=== PATIENT | female | born 1950 | race Caucasian/White ===

== ENCOUNTER 2023-03-10 17:09 | Inpatient (IN) | payer OTHER ==
[~2023-03-10] VITALS: Ht 152.4 cm; Wt 48.0 kg
[~2023-03-10 17:09] MED LIST: ASPIRIN 81M81 MG/TA2 PO; COENZYME Q-10200 M1 PO; EFFIENT5 MG PO; IBU400 MG PO; MELATONIN1 MG PO; MICARDIS HCT 121 TA1 PO; MULTI VITAMINS1 TAB PO; NITROSTAT0.4 MG/TAB SL; NORVASC 10MG10 MG PO; OMEGA MINT FISH1 SGL PO; TOPROL XL 25MG25 MG PO; VITAMIN D32000 I1 PO; ZADITOR 5 ML5 ML; ZETIA 10MG TAB10 MG PO; ZYRTEC 10MG10 MG PO
[2023-03-10 18:30] VITALS: BP 165/96; PULSE 82; TEMP 98.1
--- NOTE | 2023-03-10 18:39 | NUR ---
admitted via stretcher from [facility], assisted off cart and into bed at approx 1825, alert and oriented but asks and says things that aren't relevant, into bathroom and voided qs, then out to room and into gown, heart rate strong and regular, lungs are CTA, abdomen soft and slightly distended, bowel sounds present in 4 quads, skin warm and dry and color normal, INT to right antecubital, she denies needs, at bedside
--- NOTE | 2023-03-10 19:00 | NUR ---
bedside shift report given to KI Carrera
[2023-03-10 19:13] VITALS: BP 149/61; PULSE 82; TEMP 97.6
--- NOTE | 2023-03-10 20:00 | NUR ---
PATIENT RECENTLY ARRIVED TO UNIT BEFORE SHIFT CHANGE, ADMISSION COMPLETED. PATIENT IS A&O. VSS ON TELE. DENIES C/O N/V AT THIS TIME, ONLY C/O ABD PAIN WITH CERTAIN MOVEMENTS OR WHEN HER ABD IS PUSHED/PALPATED. ABD IS DISTENDED, SOFT AND WITH POSITIVE BOWL SOUNDS. PATIENT REPORTS SMALL HARD, PEBBLE LIKE STOOL YESTERDAY. REPORTS SHE IS NOT PASSING FLATUS. CURRENTLY ON BOWL REST, NPO. GAVE PRN IV ZOFRAN BEFORE SCHEDULED PO MEDS GIVEN WITH SIPS PER HOSPITALIST, SEE MAR. IV FLUIDS INFUSING VIA PUMP INTO RIGHT AC IV. HEAD TO TOE ASSESSMENT COMPLETE. AT BEDSIDE. ORIENTED TO ROOM. CALL LIGHT IN REACH. HOSPITALIST LEGAL PARAPROFESSIONAL AT BEDSIDE, SEE ORDERS.
[2023-03-10 23:27] VITALS: BP 151/82; PULSE 87; TEMP 98.4
[2023-03-11] VITALS (10 sets, daily range): BP systolic 121–159; BP diastolic 69–96; PULSE 77–104; TEMP 97.5–98.8
[2023-03-11] MEDS ORDERED: PROAIR HFA0.09 MG/AC IH (03:30)
[2023-03-11] MEDS ORDERED: ADVIL200 MG PO (03:32)
[2023-03-11] MEDS ORDERED: EPA FISH OIL1 SGL PO (03:37)
[2023-03-11] MEDS ORDERED: ATROVENT I0.2 MG/1 M IH (03:38)
[2023-03-11] MEDS ORDERED: BYSTOLIC2.5 MG PO (03:41)
[2023-03-11 05:32] LABS: BASO # 0.1 K/mm3 (0.0-0.2); BASO % 0.8 % (0.0-2.0); EOS # 0.2 K/mm3 (0.0-0.7); EOS % 2.3 % (0.0-4.0); GRAN # 5.5 K/mm3 (1.4-6.5); GRAN % 73.9 % (42.2-75.2); HEMOGLOBIN 11.8 g/dl (12.5-16.0); LYMPH # 1.2 K/mm3 (1.2-3.4); LYMPH % 16.2 % (20.0-51.0); MEAN CELL VOLUME 87 fl (80.0-100.0); MEAN CORPUSCULAR HEMOGLOBIN 30 pg (27-31); MEAN CORPUSCULAR HGB CONC 34 g/dl (33.0-37.0); MEAN PLATELET VOLUME 9.5 fl (7.4-10.4); MONO # 0.5 K/mm3 (0.1-0.6); MONO % 6.5 % (1.7-9.3); PLATELET COUNT 266 K/mm3 (130-400); RED BLOOD COUNT 3.96 M/mm3 (4.10-5.30); REDCELL DISTRIBUTION WIDTH-CV 12.8 % (11.5-14.5)
[2023-03-11 05:36] LABS: HEMATOCRIT 34.4 % (37.0-47.0)
[2023-03-11 06:01] LABS: CALCIUM 8.9 mg/dL (8.4-10.2); CREATININE, serum 0.94 mg/dL (0.57-1.11); POTASSIUM 3.7 mmol/L (3.5-4.5)
--- NOTE | 2023-03-11 12:07 | NUR ---
Air Purifier Servicer met with patient to discuss discharge planning. Patient lives in [place] with her , Adam (ph#[phone]). Patient goes to [facility] for primary care and medications. Patient does not use any DME and is independent with [facility]. Patient was not sure if she had DPOA-HC or not. Patient stated she has two sons: one in [place] and one in [place]. Patient also has a daughter that lives in [place]. Patient plans to return to home at time of discharge. Discharge Plan: Home
--- NOTE | 2023-03-11 14:13 | NUR ---
Initial visit: Geodetic Engineer stopped by room on rounds. Pt was resting and content. Pt has no needs right now. Geodetic Engineer will follow up as needed.
[2023-03-11] MEDS ORDERED: NIGHT TIME COL355 M1 PO (14:46)
--- NOTE | 2023-03-11 16:31 | NUR ---
Reviewed student nurses assessment of the patient. Patient A&Ox4. VSS. IV CDI, fluids infusing. Reports pain in abdomen, patient NPO. Waiting to talk with the doctor. No further needs expressed. Call light within reach
--- NOTE | 2023-03-11 20:35 | NUR ---
Initial shift assessment done- states and abd pain 12/09-did inform pt she can have some Morphine IV for pain but she prefers to have the Tylenol suppositiory for pain,, Taking just few sips of clear liquids, Tele on- NSR, Iv fluids of NS at 75cc/hr-Up to bathroom with assist,voiding clear yellow urine- states abd feels heavy but denies nausea.
[2023-03-12] VITALS (11 sets, daily range): BP systolic 129–157; BP diastolic 74–87; PULSE 81–89; TEMP 97.9–98.7
[2023-03-12 05:10] LABS: BASO # 0.1 K/mm3 (0.0-0.2); BASO % 1.2 % (0.0-2.0); EOS # 0.2 K/mm3 (0.0-0.7); EOS % 4.6 % (0.0-4.0); GRAN # 3.2 K/mm3 (1.4-6.5); GRAN % 63.4 % (42.2-75.2); HEMOGLOBIN 11.2 g/dl (12.5-16.0); LYMPH # 1.2 K/mm3 (1.2-3.4); MEAN CELL VOLUME 89 fl (80.0-100.0); MEAN CORPUSCULAR HEMOGLOBIN 30 pg (27-31); MEAN CORPUSCULAR HGB CONC 33 g/dl (33.0-37.0); MEAN PLATELET VOLUME 9.5 fl (7.4-10.4); MONO # 0.3 K/mm3 (0.1-0.6); MONO % 6.6 % (1.7-9.3); PLATELET COUNT 273 K/mm3 (130-400); RED BLOOD COUNT 3.75 M/mm3 (4.10-5.30); REDCELL DISTRIBUTION WIDTH-CV 12.7 % (11.5-14.5)
[2023-03-12 05:21] LABS: HEMATOCRIT 33.5 % (37.0-47.0)
--- NOTE | 2023-03-12 05:57 | NUR ---
VSS, was given Tylenol suppositiory x2 tonight for abd pain- no nausea/vomiting, states is passing small amount of gas- no BM, abd rounded, soft w/active bowel sounds.
[2023-03-12 06:15] LABS: CALCIUM 8.2 mg/dL (8.4-10.2); CREATININE, serum 0.78 mg/dL (0.57-1.11); POTASSIUM 3.1 mmol/L (3.5-4.5)
--- NOTE | 2023-03-12 20:00 | NUR ---
Initial shift assessment done- States has a headache and abd pain 11/09,,offered morphine IV but pt prefers just the Tylenol Suppository at this time, SCD,s placed on pt at this time, IV fluids remain at 75cc/hr, Abd rounded , soft, distant bowel sounds, is passing some gas - Tele on SR,, VSS, has a congested sounding cough. Did get a CXR earlier today--Did talk with the PA on [facility] [employer] to look at results-- will order an I.S, no fever, or increased white count no o2 needed,so will just watch tonzackary
[2023-03-13] VITALS (11 sets, daily range): BP systolic 133–168; BP diastolic 71–93; PULSE 81–94; TEMP 97.5–98.6
--- NOTE | 2023-03-13 05:38 | NUR ---
Quiet night , has been resting well, did request cough medicine during the night and did get order but pt has been sleeping so not given yet, only received the Tylenol at start of shift- not getting any other meds for pain/nausea. Only taking a few sips/not wanting to try food {pudding etc"
[2023-03-13 05:53] LABS: BASO # 0.1 K/mm3 (0.0-0.2); BASO % 0.9 % (0.0-2.0); EOS # 0.3 K/mm3 (0.0-0.7); EOS % 5.4 % (0.0-4.0); GRAN # 3.3 K/mm3 (1.4-6.5); HEMOGLOBIN 11.8 g/dl (12.5-16.0); LYMPH # 1.3 K/mm3 (1.2-3.4); LYMPH % 24.3 % (20.0-51.0); MEAN CELL VOLUME 87 fl (80.0-100.0); MEAN CORPUSCULAR HEMOGLOBIN 30 pg (27-31); MEAN CORPUSCULAR HGB CONC 34 g/dl (33.0-37.0); MEAN PLATELET VOLUME 9.6 fl (7.4-10.4); MONO # 0.4 K/mm3 (0.1-0.6); MONO % 8.2 % (1.7-9.3); PLATELET COUNT 312 K/mm3 (130-400); RED BLOOD COUNT 3.95 M/mm3 (4.10-5.30); REDCELL DISTRIBUTION WIDTH-CV 12.2 % (11.5-14.5)
[2023-03-13 05:54] LABS: CALCIUM 8.5 mg/dL (8.4-10.2); CREATININE, serum 0.71 mg/dL (0.57-1.11); HEMATOCRIT 34.4 % (37.0-47.0); POTASSIUM 3.2 mmol/L (3.5-4.5)
--- NOTE | 2023-03-13 08:45 | NUR ---
SHIFT ASSESSMENT COMPLETED. PATIENT WAS HAVING PAIN THIS MORNING. GIVEN TYLENOL SUPPOSITORY PER EMAR. PATIENT REPORTS CHEST PAIN AND ABDOMIANL PAIN. SHE REPORTS NOT BEING HUNGRY AND NOT FEELING LIKE EATING HER MEALS. PATIENT REPORTS HAVING NO BOWEL MOVEMENTS ONLY A PEBBLE OF POOP PER HER WORDS. CALL LIGHT WITHIN REACH.
--- NOTE | 2023-03-13 18:39 | NUR ---
PATIENT HAS BEEN HAVING POOR APPETITE THROUHOUT THE DAY. PATIENT JUST HAD A VOMITING EPISODE. SHE REPORTED DID NOT FEEL GOOD AND THEN SHE VOMITTED. VOMIT WAS GREEN/YELLOW AND RUNNY. PATIENT HELPED GET CLEANED UP AND NEW GOWN WAS PROVIDED. CALL LIGHT WITHIN REACH. ALARM ON BED.
--- NOTE | 2023-03-13 19:00 | NUR ---
RECEIVED CHANGE OF SHIFT REPORT FROM DAY SHIFT RN.
--- NOTE | 2023-03-13 20:30 | NUR ---
PATIENT STILL COMPLAINS OF NAUSEA AFTER ZOFRAN GIVEN, INFORMED ONCALL HOSP PROVIDER OF C/O, PROVIDER TO ENTER ORDER ACCORDINGLY.
--- NOTE | 2023-03-13 21:16 | NUR ---
PATIENT REPORTED HAD EMESIS AND THAT HER STOMACH "STILL FEELS FUNNY", OBSERVED EMESIS BROWNISH IN COLOR.
[2023-03-14] VITALS (10 sets, daily range): BP systolic 142–160; BP diastolic 75–92; PULSE 77–96; TEMP 97.9–99
[2023-03-14 05:19] LABS: BASO % 0.6 % (0.0-2.0); EOS # 0.1 K/mm3 (0.0-0.7); EOS % 2.2 % (0.0-4.0); GRAN # 4.3 K/mm3 (1.4-6.5); GRAN % 68.1 % (42.2-75.2); HEMOGLOBIN 11.2 g/dl (12.5-16.0); LYMPH # 1.4 K/mm3 (1.2-3.4); MEAN CELL VOLUME 88 fl (80.0-100.0); MEAN CORPUSCULAR HEMOGLOBIN 29 pg (27-31); MEAN CORPUSCULAR HGB CONC 33 g/dl (33.0-37.0); MEAN PLATELET VOLUME 9.8 fl (7.4-10.4); MONO # 0.4 K/mm3 (0.1-0.6); MONO % 6.9 % (1.7-9.3); PLATELET COUNT 308 K/mm3 (130-400); RED BLOOD COUNT 3.85 M/mm3 (4.10-5.30); REDCELL DISTRIBUTION WIDTH-CV 12.4 % (11.5-14.5)
[2023-03-14 05:22] LABS: HEMATOCRIT 33.8 % (37.0-47.0)
[2023-03-14 05:39] LABS: CALCIUM 8.4 mg/dL (8.4-10.2); CREATININE, serum 0.79 mg/dL (0.57-1.11); POTASSIUM 3.8 mmol/L (3.5-4.5)
--- NOTE | 2023-03-14 07:27 | NUR ---
CHANGE OF SHIFT REPORT GIVEN TO DAY SHIFT RNRODRÍGUEZ.
--- NOTE | 2023-03-14 10:33 | NUR ---
GIVEN PATIENTS ANASTASIA VELEZ PHONE NUMBER TO CALL FOR UPDATE. PATIENT GAVE VERBAL CONSENT
--- NOTE | 2023-03-14 11:37 | NUR ---
ECHO IN ROOM.PATIENT WITH COPMLAINTS OF ABD PAIN 12/09.. PAIN MEDICATION ADMINISTERED.
--- NOTE | 2023-03-14 15:45 | NUR ---
DR REYES SPENT EXTENSIVE TIME WITH PATIENT INFORMING HER OF POSSIBLE SURGERY FOR TOMORROW. RN SAW PATIENT SHORTLY AFTER, TO SIGN CONSENT, PATIENT DOES NOT WANT TO SIGN CONSENT AT THIS TIME. PATIENT STATED SHE NEEDS TIME TO THINK ABOUT IT. PATIENT SAID SHE WANTS TO WAIT AND SEE IF SHE DOES BETTER TONIGHT. RN EDUCATED HER THAT ALTHOUGH SHE IS UNDERSTANDABLY APREHENSIVE ABOUT FEELING SICK, SHE SHOULD TRY TO EAT A LITTLE AND SEE HOW SHE FEELS. PATIENT DOES NOT WISH TO EAT OR DRINK ANYTHING AT THIS TIME.C ALL LIGHT WITHIN REACH. FALL PRECAUTIONS IN PLACE.
--- NOTE | 2023-03-14 16:00 | NUR ---
PATIENT AWAKE AND ALERT, RESTING IN BED. PATIENTS AT BEDSIDE. FALL PRECAUTIONS IN PLACE. PATEINT NAUSEA IMPROVED SINCE MEDICATION. PATIENT DOES NOT WANT ANYTHING TO EAT AT THIS TIME. EDUCATION AGAIN PROVIDED ABOUT INTAKE. [facility].
--- NOTE | 2023-03-14 16:50 | NUR ---
PATIENT AT BEDSIDE. PATIENT STATED SHE FEELS LIKE FOOD IS COMING BACK UP HER THROAT AND SHE IS NAUSOUS. PATIENT HAS HAD LITTLE INTAKE. SHE HAS NOT HAD FOOD FOR 2 HOURS AND ONLY HAD 2 SMALL BITES OF APPLESAUCE AT THAT TIME. ANTIEMETIC GIVEN.
[2023-03-15] VITALS (16 sets, daily range): BP systolic 118–160; BP diastolic 67–83; PULSE 84–101; TEMP 97.6–98.5
--- NOTE | 2023-03-15 01:43 | NUR ---
Shift assessment performed- see documentation. Pt is alert and oriented. She is complaining of abdominal pain when she is coughing or moving. She currently has NS running at 75 ml/hr. She had a BP reading of 160/92 and PRN apresoline was administered. Her home BP meds are administered with the morning meds. I witnessed pt verbalize understanding for the surgical prodecure scheduled for tomorrow and she signed the consent. She is NPO at this time. She denies other needs at this time. Fall precautions and call light within reach.
[2023-03-15 05:27] LABS: BASO % 0.3 % (0.0-2.0); EOS % 0.2 % (0.0-4.0); GRAN # 5.4 K/mm3 (1.4-6.5); GRAN % 84.3 % (42.2-75.2); HEMOGLOBIN 11.4 g/dl (12.5-16.0); LYMPH # 0.7 K/mm3 (1.2-3.4); LYMPH % 10.6 % (20.0-51.0); MEAN CELL VOLUME 88 fl (80.0-100.0); MEAN CORPUSCULAR HEMOGLOBIN 30 pg (27-31); MEAN CORPUSCULAR HGB CONC 34 g/dl (33.0-37.0); MEAN PLATELET VOLUME 9.6 fl (7.4-10.4); MONO # 0.3 K/mm3 (0.1-0.6); MONO % 4.1 % (1.7-9.3); PLATELET COUNT 301 K/mm3 (130-400); RED BLOOD COUNT 3.86 M/mm3 (4.10-5.30); REDCELL DISTRIBUTION WIDTH-CV 12.5 % (11.5-14.5)
[2023-03-15 05:30] LABS: HEMATOCRIT 33.9 % (37.0-47.0)
[2023-03-15 05:46] LABS: CALCIUM 8.1 mg/dL (8.4-10.2); CREATININE, serum 0.77 mg/dL (0.57-1.11); POTASSIUM 3.3 mmol/L (3.5-4.5)
--- NOTE | 2023-03-15 06:17 | NUR ---
I entered pt's room to find her vomiting at about 0350. She stated that she had been coughing which then triggered the nausea/vomiting. PRN zofran was administered as ordered.
--- NOTE | 2023-03-15 07:52 | NUR ---
PATIENT DOES NOT WANT TO TAKE MEDICATIONS BECAUSE SHE DOES NOT "WANT TO BECOME SICK."
--- NOTE | 2023-03-15 11:50 | NUR ---
PATIENTS SON CALLED RN FOR UPDATE ON PATIENT STATUS. PATIENT GAVE RN VERBALL CONSENT FOR HER SON TO HAVE ANY AND ALL MEDICAL INFORMATION.
--- NOTE | 2023-03-15 14:43 | NUR ---
PATIENT TAKEN TO PRE OP
--- NOTE | 2023-03-15 16:47 | NUR ---
PATIENT AWAKE AND ALERT, RESTING IN BED. PATIENT DENIES ANY PAIN, NAUSEA OR VOMITTING AT THIS TIME. VITAL SIGNS STABLE.
[2023-03-16] VITALS (11 sets, daily range): BP systolic 127–148; BP diastolic 64–85; PULSE 50–97; TEMP 97.7–98.5
--- NOTE | 2023-03-16 08:05 | NUR ---
PATIENT AWAKE AND ALERT, SITTING UP IN BED. PATIENT DENIES ANY PAIN OR COMPLAINTS AT THIS TIME. FALL PRECAUTION SIN PLACE. CALL LIGHT WITHIN REACH.
--- NOTE | 2023-03-16 13:38 | NUR ---
PATIENT AWAKE AND ALERT, RESTING IN BED. PATIENT DENIES ANY NEEDS OR COMPLAINTS AT THIS TIME. PATIENTS LAP SITES ARE CDI. PATIENTS CALL LIGHT WITHIN REACH. FALL PRECAUTIONS IN PLACE.
--- NOTE | 2023-03-16 20:30 | NUR ---
Initial shift assessment done- denies pain, was just up to bathroom and had some gas and a small stool, Tele on SR 81/min, no SOB, VSS, Abd lap sites clean/dry and intact, IV fluids of NS at 75cc/hr, has been eating/drinking some and is tolerating well, denies nausea. will probably go home tomorrow.
[2023-03-17] VITALS (8 sets, daily range): BP systolic 130–145; BP diastolic 83–86; PULSE 77–81; TEMP 97.4–97.8
--- NOTE | 2023-03-17 06:00 | NUR ---
Has not slept much-- did finally get a couple hours of sleep towards morning-- denies pain/nausea-- VSS . Did states she did have a hallucination during the night of a little boy in her room, states she had told Dr. Day about the hallucinations yesterday- pt states the anesthesia does this to her- bed alarm on- knows to call for assistance when getting up.
--- NOTE | 2023-03-17 06:55 | NUR ---
PATIENT ASLEEP, RESTING IN BED. PATIENTS CALL LIGHT WITHIN REACH. FALL PRECAUTIONS IN PLACE.
--- NOTE | 2023-03-17 07:30 | NUR ---
HOSPITALIST TEAM AWARE OF PATIENTS LOW CRITICAL POTASSIUM 2.8
[2023-03-17 08:13] LABS: BASO # 0.1 K/mm3 (0.0-0.2); BASO % 0.9 % (0.0-2.0); EOS # 0.2 K/mm3 (0.0-0.7); EOS % 4.1 % (0.0-4.0); GRAN # 3.6 K/mm3 (1.4-6.5); GRAN % 60.7 % (42.2-75.2); HEMOGLOBIN 10.9 g/dl (12.5-16.0); LYMPH # 1.6 K/mm3 (1.2-3.4); LYMPH % 27.3 % (20.0-51.0); MEAN CELL VOLUME 86 fl (80.0-100.0); MEAN CORPUSCULAR HEMOGLOBIN 30 pg (27-31); MEAN CORPUSCULAR HGB CONC 35 g/dl (33.0-37.0); MEAN PLATELET VOLUME 10.1 fl (7.4-10.4); MONO # 0.4 K/mm3 (0.1-0.6); MONO % 6.5 % (1.7-9.3); PLATELET COUNT 326 K/mm3 (130-400); RED BLOOD COUNT 3.65 M/mm3 (4.10-5.30); REDCELL DISTRIBUTION WIDTH-CV 12.7 % (11.5-14.5)
[2023-03-17 08:17] LABS: HEMATOCRIT 31.5 % (37.0-47.0)
[2023-03-17 08:37] LABS: CALCIUM 8.1 mg/dL (8.4-10.2); CREATININE, serum 0.7 mg/dL (0.57-1.11); MAGNESIUM 1.7 mg/dL (1.6-2.6)
[2023-03-17 08:40] LABS: POTASSIUM 2.8 mmol/L (3.5-4.5)
--- NOTE | 2023-03-17 11:47 | NUR ---
PATIETN AWAKE AND ALERT, SITTING AT EDGE OF BED. PATIENTS AT BEDSIDE. PATIENT STATED SHE TOLERATED HER LOW FIBRE BREAKFST VERY WELL, SHE DENIES ANY PAIN, NEAUSEA OR VOMITTING.
--- NOTE | 2023-03-17 15:09 | NUR ---
DR REYES INFORMED THAT PATIENT TOLERATED LOW FIBER DIET WELL FOR BREAKFAST AND LUNCH. PER DR REYES SHE CAN DISCHARGE AND SEE HIM NEXT WEEK OUTPATIETN
--- NOTE | 2023-03-17 17:32 | NUR ---
Discharge instructions reviewed with patient and spouse- both verbalize understanding. INT to RFA d/c'd with cath tip intact. Tele d/c'd. Pt escorted to private vehicle via w/c and discharge home with spouse.
== END 2023-03-17 17:10 | disposition home or self-care (01) | DRG 336 ==
LOC: MEDICAL 17:09
PROVIDERS: Nurse Practitioner Family; Physician Assistant; ADMIT Internal Medicine
PROC: 0DNW4ZZ Release Peritoneum, Percutaneous Endoscopic Approach (ICD-10-PCS; principal; 2023-03-10)
DX: K56.609 Unspecified intestinal obstruction, unspecified as to partial versus complete obstruction (principal); E44.0 Moderate protein-calorie malnutrition; J98.11 Atelectasis; K66.0 Peritoneal adhesions (postprocedural) (postinfection); I10 Essential (primary) hypertension; E87.6 Hypokalemia; Z68.20 Body mass index [BMI] 20.0-20.9, adult
CPT/HCPCS: A9284; C9113; J0360; J0690; J0696; J0780; J1100; J1650; J1885; J2270; J2405; J2704; J3010; J3480; J7030